=== PATIENT | male | born 1970 | race Caucasian/White ===

== ENCOUNTER → 2017-12-30 | Outpatient (CLI) | payer OTHER ==
--- NOTE | 2017-12-30 16:32 | KCIC ---
EXAM: Left inguinal sonogram. HISTORY: Pain. TECHNIQUE: Sonographic imaging of the left inguinal region was performed. COMPARISON: None. FINDINGS: There are left inguinal lymph nodes, the largest of which measures 2.7 x 1.3 x 0.5 cm. This maintains a benign fatty hilum. No suspicious lymph node morphology is seen. No hernia, mass or fluid collection is seen. IMPRESSION: Benign-appearing left inguinal lymph nodes. Electronically signed by: Nathalie Lopez MD (12/30/2017 4:29 PM) [place] [id number]
--- NOTE | 2017-12-30 16:33 | KCIC ---
ABDOMEN COMPLETE History: Left lower quadrant pain Comparison: None. Findings: Multiple sonographic images of the abdomen are submitted. Pancreas is poorly visualized. Right kidney measured 11 x 5.4 x 5.3 cm. Left kidney measured 12 x 6 x 4.7 cm. there is no hydronephrosis of either kidney. Gallbladder is present without intraluminal abnormality, wall thickening, pericholecystic fluid. No focal hepatic lesion is demonstrated. Right lobe of liver measured 13.6 cm longitudinal. Hepatic echogenicity is considered within normal limits. Abdominal aortic caliber is within normal limits up to 2 cm. There is segmental visualization of the inferior vena cava. At site of pain in the left lower quadrant, there is fluid filled bowel. There are some echogenic foci of the spleen likely due to granulomas. Exam is somewhat compromised due to bowel gas. Common bile duct is within normal limits at 0.3 cm. Impression: 1. There is fluid filled bowel at site of pain in the left lower quadrant. No other significant abnormality is demonstrated. Electronically signed by: Terry Cruz MD (12/30/2017 4:30 PM) [facility] [place]-[id number]
== END | disposition home or self-care (01) ==
LOC: KCIC US 15:25
PROVIDERS: ATTEND Physician Assistant Medical
DX: R10.32 Left lower quadrant pain (principal)
CPT/HCPCS: 76700; 76882

== ENCOUNTER → 2018-01-06 | Outpatient (CLI) | payer OTHER ==
[~2018-01-06] MED LIST: CYCL5TAB PO; IOHEXOL 240 MG/ML 50ML VIAL. PO ONE; IOHEXOL 300 MG/ML 100ML VIAL. IV ONE; PARO10TA57 PO; SILD20TA2 PO; SILD50TA PO
--- NOTE | 2018-01-06 14:32 | KCIC ---
CT ABD PELV W/ORAL IV CONTRAST Indication: Left lower quadrant pain for one month. Exposure: One or more of the following individualized dose reduction techniques were utilized for this examination: 1. Automated exposure control 2. Adjustment of the mA and/or kV according to patient size 3. Use of iterative reconstruction technique. Comparison: None are available. Contrast: Intravenous contrast was given. No oral contrast per request. FINDINGS: Lower thorax: Lung bases are clear. Liver: There are a couple of tiny subcentimeter low-density lesions, too small to characterize but would most commonly be benign. Spleen: Unremarkable Pancreas: Unremarkable Adrenals: No evidence of mass. Kidneys: No obvious mass. Urinary tracts: No hydronephrosis. Gallbladder: No calcified stone Lymph nodes: No significant enlargement Vessels: * Aorta: Nonaneurysmal. No evidence of dissection. There are 2 right renal arteries, which are patent. Left renal artery is patent. * Mesenteric: Patent * Portal venous: Patent GI tract: No bowel obstruction. Mild wall thickening of the sigmoid colon is thought to be due to nondistention. No paracolonic inflammatory changes. Appendix is normal. Reproductive organs:No evidence of mass. Urinary bladder: Unremarkable. Peritoneum: No evidence of pneumoperitoneum. No free fluid. Abdominal wall:Unremarkable Spine: Mild degenerative changes. Transitional anatomy at the lumbosacral junction. Bones: No destructive process identified. IMPRESSION: 1. Apparent mild wall thickening of the sigmoid colon is thought to just be due to nondistention. There are no paracolonic inflammatory type changes to suggest acute colitis. However, if sigmoid colitis is of specific concern, short-term follow-up imaging could be of benefit. 2. Otherwise no acute findings. Electronically signed by: Ceasar Iraheta MD (01/06/2018 2:29 PM) [facility]
== END | disposition home or self-care (01) ==
LOC: KCIC CT 11:14
PROVIDERS: ATTEND Physician Assistant Medical
DX: R10.32 Left lower quadrant pain (principal)
CPT/HCPCS: 74177; Q9966; Q9967